=== PATIENT | female | born 1970 | race Caucasian/White ===

== ENCOUNTER 2017-03-27 00:40 | Emergency (ER) | payer OTHER ==
[~2017-03-27] VITALS: Ht 172.7 cm; Wt 104.3 kg
--- NOTE | ~2017-03-27 | CR72 ---
[facility] A Service of [facility] RADIOLOGY TEXT RESULTS PATIENT: KALLIE BURRELL LOCATION: [facility] : 74 UNIT #: [id number] AGE: [address]: Muna Elkins MD SEX: F ORDER DR: [id number] [facility] [address] [place], [place] [address] [id number] MR#: [id number] Acc #: [id number] NAME: KALLIE BURRELL : 1970 SEX: F STUDY DATE/TIME: 03/27/2017 1:53 UNIT: [facility] ROOM: STUDY DESCRIPTION: CR Chest Single View Portable Attending Physician: Muna Elkins M.D. Ordering Physician: Muna Elkins M.D. Primary Care Physician: Ирина Washington M.D. MEDICAL IMAGING REPORT This report is preliminary unless electronic signature is present EXAM Chest x-ray 03/27/17. HISTORY 47-year-old female in the ED complaining of 2-day history of chest pain. TECHNIQUE AP portable chest x-ray. FINDINGS Heart size and pulmonary vascularity are normal. The lungs are expanded and clear. No visible pulmonary infiltrate or pleural effusion. Benign calcified granuloma left mid lung. No change since 12/20/15. IMPRESSION No active disease. No change since 12/20/15. Dictated by... Enrico Flores M.D. THIS IS AN ELECTRONICALLY VERIFIED REPORT Enrico Flores M.D. at 03/28/2017 2:44 AM RGW/gz TD: 03/27/2017 13:07 JOB #: [id number] MEDICAL IMAGING REPORT Page 1 of 1 COPY
--- NOTE | ~2017-03-27 | EKG ---
PATIENT: KALLIE BURRELL UNIT #: [id number] Ventricular Rate: 53 BPM Atrial Rate: 53 BPM P-R Interval: 208 ms QRS Duration: 94 ms Q-T Interval: 436 ms QTC Calculation(Bezet): 409 ms P Austin: 24 degrees Calculated R Austin: 35 degrees Calculated T Austin: 34 degrees Diagnosis Line: Sinus bradycardia Diagnosis Line: Cannot rule out Anterior infarct , age Diagnosis Line: undetermined Diagnosis Line: Abnormal ECG Diagnosis Line: No previous ECGs available Diagnosis Line: Confirmed by PRAVEEN COOMBS MD ([id number]) on Diagnosis Line: 03/27/2017 8:06:22 AM INTERPRETING MD: MALVIN TAVAREZ
[~2017-03-27 00:40] MED LIST: ALBUTEROL17 GM INH; ALPRAZOLAM PO; AMOXICILLIN500 M1 PO; ANAPROX DS550 M1 PO; ANTIDEPRESSANT; BACTRIM DS TABL1 TA1 PO; DICLOFENAC; FIORICET 50-321 EACH PO; FLAGYL PO; FLEXERIL10 MG; FLEXERIL10 MG PO; IBUPROFEN PO; KEFLEX PO; KETOPROFEN PO; LORTAB 10-5001 EACH PO; LORTAB 10/500 T1 TAB PO; LORTAB 5/500 TA1 TA1 PO; MEDROL4 MG/DOSE- PO; MIRALAX17 GM PO; MOTRIN400 MG; NAPROSYN375 MG PO; PHENERGAN DM1 ML PO; SEROQUEL PO; ULTRAM PO; VOLTAREN75 MG PO
[2017-03-27 02:22] LABS: BASOPHIL# 0.1 X10e3 (0-0.3); DIFF IND NO; EOSINOPHIL# 0.2 X10e3 (0-0.7); EOSINOPHIL% 4.2 % (0.0-7.0); HEMATOCRIT 36.9 % (35.0-45.0); HEMOGLOBIN 12.1 gm/dL (12.0-16.0); LYMPHOCYTE# 2.6 X10e3 (1.0-3.5); LYMPHOCYTE% 50.2 % (17.0-45.0); MEAN CELL VOLUME 87.8 FL (83-96); MEAN CORPUSCULAR HEMOGLOBIN 28.8 PG (28-34); MEAN CORPUSCULAR HGB CONC 32.8 g/dL (30-36); MEAN PLATELET VOLUME 8.6 FL (6.5-11.5); MONOCYTE# 0.3 X10e3 (0-1.0); MONOCYTE% 5.3 % (3.0-12.0); NEUTROPHIL% 39.3 % (40-75); PLATELET COUNT 167 X10e3 (140-420); WHITE BLOOD COUNT 5.1 X10e3 (4.0-10.5)
[2017-03-27 02:23] LABS: POC - CKMB <1.0 ng/mL (0.0-7.9); POC - TROPONIN <0.05 ng/mL (<=0.05)
[2017-03-27 02:52] LABS: ALBUMIN SERUM 3.1 g/dL (3.5-5.0); BILIRUBIN, DIRECT 0.1 mg/dL (0.0-0.2); BILIRUBIN,INDIRECT 0.5 mg/dL (0.0-0.9); BILIRUBIN,TOTAL 0.6 mg/dL (0.2-2.0); BUN/CREATININE RATIO 14.28; CREATININE SERUM 0.7 mg/dL (0.6-1.4); GLOM FILT RATE Estimated 104.6 mL/min (>60); PROTEIN TOTAL SERUM 6.6 g/dL (6.0-8.3)
[2017-03-27 03:35] LABS: POC - CKMB <1.0 ng/mL (0.0-7.9); POC - TROPONIN <0.05 ng/mL (<=0.05)
[2017-03-27 04:32] LABS: URINE SOURCE CLEAN CATCH
[2017-03-27 04:37] LABS: URINE APPEARANCE CLEAR; URINE BILIRUBIN NEG (NEG); URINE BLOOD NEG (NEG); URINE COLOR YELLOW; URINE GLUCOSE NEG (NEG); URINE KETONE NEG (NEG); URINE LEUKOCYTE ESTERASE NEG (NEG); URINE NITRATE NEG (NEG); URINE PROTEIN NEG (NEG); URINE SPECIFIC GRAVITY 1.022 (1.003-1.035)
[2017-03-27 04:42] LABS: CULTURE INDICATED? NO
[2017-03-27 04:48] LABS: AMPHETAMINE NEG (NEG); BARBITURATES NEG (NEG); BENZODIAZEPINES POS (NEG); COCAINE NEG (NEG); MARIJUANA NEG (NEG); OPIATES POS (NEG); TRICYCLIC ANTIDEPRESSANTS NEG (NEG); U METHADONE NEG (NEG)
== END 2017-03-27 06:00 | disposition home or self-care (01) ==
LOC: CED 00:40
PROVIDERS: Emergency Medicine
DX: R10.9 Unspecified abdominal pain (principal); F41.0 Panic disorder [episodic paroxysmal anxiety]; Z88.5 Allergy status to narcotic agent
CPT/HCPCS: 36415; 71010; 80048; 80076; 80307; 81003; 82150; 82553; 83690; 84484; 85025; 93005; 99284